=== PATIENT | female | born 1980 | race African-American/Black ===

== ENCOUNTER → 2016-11-22 | Outpatient (CLI) | payer OTHER ==
--- NOTE | ~2016-11-22 | MY14 ---
[facility] A Service of [facility] RADIOLOGY TEXT RESULTS PATIENT: SANTINO DAMICO LOCATION: [facility] : 78 UNIT #: [id number] AGE: [address]: YANETH PIRES SEX: F ORDER DR: [id number] [facility] [address] [place], [place] [address] [id number] O MR#: [id number] Acc #: [id number] NAME: SANTINO DAMICO : 1980 SEX: F STUDY DATE/TIME: 11/22/2016 12:00 UNIT: [facility] ROOM: STUDY DESCRIPTION: MY Post Bx Film Attending Physician: Moshe Pate Referring Physician: Moshe Pate Ordering Physician: Moshe Pate Primary Care Physician: Noris Alex M.D. MEDICAL IMAGING REPORT This report is preliminary unless electronic signature is present EXAM Two-view right breast post-biopsy clip placement DATE 11/22/2016 HISTORY Status post right breast nodule biopsy today. COMPARISON Bilateral diagnostic mammogram and right breast ultrasound 10/15/2016 FINDINGS CC and MLO view were obtained of the right breast. Clip placement after biopsy is located within the upper outer right breast near the 10 o'clock position with the anterior third nearly 4.6 cm from the nipple. It is thought to correspond to site of suspected clustered microcyst on ultrasound. It is seen near the vicinity of the patient's previous palpable complaint on 10/15/2016. IMPRESSION Two-view post clip placement mammogram. Please refer to the procedure report from the same date for full description of findings. Dictated by... Saige Moe M.D. THIS IS AN ELECTRONICALLY VERIFIED REPORT Saige Moe M.D. at 11/23/2016 7:11 AM H/to TD: 11/22/2016 13:16 JOB #: [id number] [facility] A Service [facility] RADIOLOGY TEXT RESULTS PATIENT: SANTINO DAMICO LOCATION: [facility] : 78 UNIT #: [id number] AGE: [address]: YANETH PIRES SEX: F ORDER DR: MEDICAL IMAGING REPORT Page 1 of 1 COPY
--- NOTE | ~2016-11-22 | US200 ---
[facility] A Service of [facility] RADIOLOGY TEXT RESULTS PATIENT: SANTINO DAMICO LOCATION: [facility] : 78 UNIT #: [id number] AGE: [address]: YANETH PIRES SEX: F ORDER DR: [id number] [place] [address] [address], [place] [address] [id number] O MR#: [id number] Acc #: [id number] NAME: SANTINO DAMICO : 1980 SEX: F STUDY DATE/TIME: 11/22/2016 11:01 UNIT: [facility] ROOM: STUDY DESCRIPTION: US Breast Guided Bx 1st Lesion Attending Physician: Moshe Pate Referring Physician: Moshe Pate Ordering Physician: Moshe Pate Primary Care Physician: Noris Alex M.D. MEDICAL IMAGING REPORT This report is preliminary unless electronic signature is present REVISED REPORT SEE ADDENDUM EXAM Right breast nodules on guided core needle biopsy, 11/22/2016. HISTORY Nodular density in the 10 o'clock right breast, favored to represent cluster of microcysts. Ultrasound-guided core biopsy recommended. COMPARISON Bilateral diagnostic mammogram and right breast ultrasound, 10/15/2016. FINDINGS Risks, benefits, and indications for the procedure were explained to the patient, and informed written consent was obtained. Standard time-out procedure was performed. The right breast was prepped and draped in the usual sterile fashion. 1% lidocaine was injected at the chosen site. Utilizing ultrasound guidance, a 13-14 gauge coaxial biopsy needle system was advanced to the margin of the 10 o'clock right breast complex cystic-appearing lesion. 3 passes were made for 2.3 cm 0.57 specimens. Specimens were submitted in formalin for surgical pathology analysis. A clip was subsequently placed directly in the nodule with satisfactory positioning documented 2-view postprocedure mammogram. Needle was removed. Hemostasis achieved. The patient tolerated the procedure well. There were no immediate complications. IMPRESSION Successful ultrasound-guided core biopsy, 10 o'clock right breast nodule. STS. [facility] A Service of [facility] RADIOLOGY TEXT RESULTS PATIENT: SANTINO DAMICO LOCATION: [facility] : 78 UNIT #: [id number] AGE: [address]: YANETH PIRES SEX: F ORDER DR: No immediate complications. Dictated by... Saige Moe M.D. THIS IS AN ELECTRONICALLY VERIFIED REPORT Saige Moe M.D. at 11/23/2016 7:11 AM Keerthi TD: 11/22/2016 16:55 JOB #: [id number] ADDENDUM EXAM Ultrasound-guided core biopsy right breast nodule, date 11/22/2016. ADDENDUM Pathology result has returned. Right breast nodule core needle biopsy demonstrates segments of breast tissue containing changes consistent with fibrous mastopathy including duct stasis and dilation, portion of cyst well, sclerosing adenosis, few microcalcifications and changes suggesting mild ductal hyperplasia, usual type, malignancy is not identified. 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 The mammographic and sonographic findings and pathology findings are concordant. It is recommend the patient return for routine bilateral screening mammogram cycle to be initiated at the age of 39, sooner if deemed appropriate based upon physical examination findings, family history and clinical history. Dictated by... Saige Moe M.D. THIS IS AN ELECTRONICALLY VERIFIED REPORT Saige Moe M.D. at 12/31/2016 2:23 PM Doris TD: 12/27/2016 18:01 JOB #: [id number] CC: Nely/invision Please Delete MEDICAL IMAGING REPORT Page 1 of 1 COPY
== END | disposition home or self-care (01) ==
LOC: CWCC 10:43
DX: N63 Unspecified lump in breast (principal); N60.01 Solitary cyst of right breast; N60.41 Mammary duct ectasia of right breast; N60.21 Fibroadenosis of right breast
CPT/HCPCS: 88305; G0204